=== PATIENT | female | born 1995 | race Two or more races ===

== ENCOUNTER 2019-09-11 09:24 | Emergency (ER) | payer MEDICAID ==
[~2019-09-11] VITALS: Ht 162.6 cm; Wt 65.0 kg
--- NOTE | 2019-09-11 09:54 | NUR ---
US DELAY-LABS/MEDS
--- NOTE | 2019-09-11 09:57 | NUR ---
PT RESTING IN GURNEY, CHANGED INTO GOWN, NAD, ON MONITOR, SKIN COLOR WNL, WARM AND DRY, RESP WNL, AT BEDSIDE. WCTM. WAITING FOR LABS AND U/S.
[2019-09-11] MEDS ORDERED: MORPHINE SULFATE 4 MG/ML, 1ML IVPush PRN (10:00)
[2019-09-11] MEDS ORDERED: ONDANSETRON 2MG/ML, 2ML IVPush ONE (10:00)
[2019-09-11] MEDS ORDERED: KETOROLAC 30 MG/1 ML IVPush ONE (10:00)
[2019-09-11] MEDS ORDERED: ONDANSETRON 2MG/ML, 2ML ONE (10:02)
[2019-09-11] MEDS ORDERED: KETOROLAC 60 MG/2 ML ONE (10:22)
[2019-09-11] MEDS ORDERED: KETOROLAC 30 MG/1 ML ONE (10:22)
[2019-09-11] MEDS ORDERED: MORPHINE SULFATE 4 MG/ML, 1ML ONE (10:38)
--- NOTE | 2019-09-11 10:40 | NUR ---
Preceptor RN: Pt to US at this time
[2019-09-11 10:41] LABS: BASOPHILS # (AUTO) 0.05 x10^3/uL (0-0.1); BASOPHILS % (AUTO) 1 % (0-1); EOSINOPHILS # (AUTO) 0.24 x10^3/uL (0-0.4); EOSINOPHILS % (AUTO) 3 % (1-7); LYMPHOCYTES % (AUTO) 20 % (22-44); MD NO; MEAN CORPUSCULAR HEMOGLOBIN 29.2 pg (27.0-34.8); MEAN CORPUSCULAR HGB CONC 33.7 g/dL (32.4-35.8); MEAN CORPUSCULAR VOLUME 86.8 fL (80-100); MONOCYTES # (AUTO) 0.39 x10^3/uL (0.2-0.8); MONOCYTES % (AUTO) 4 % (2-9); NEUTROPHILS # (AUTO) 6.61 x10^3/uL (1.8-6.8); NEUTROPHILS % (AUTO) 73 % (42-75); PLATELET COUNT 245 x10^3/uL (130-400); RED BLOOD COUNT 4.92 x10^6/uL (3.82-5.3); RED CELL DISTRIBUTION WIDTH 12.8 % (9.6-15.2)
[2019-09-11 10:43] LABS: ALBUMIN 3.6 g/dL (3.4-5.0); ANION GAP 6 mmol/L (5-15); CALCIUM 8.6 mg/dL (8.5-10.1); CHLORIDE 112 mmol/L (98-107)
[2019-09-11 10:49] LABS: ALANINE AMINOTRANSFERASE 17 U/L (12-78); ALKALINE PHOSPHATASE 42 U/L (45-117); BILIRUBIN,TOTAL 0.5 mg/dL (0.2-1.0); CREATININE 0.71 mg/dL (0.55-1.02); TOTAL PROTEIN 7.1 g/dL (6.4-8.2)
--- NOTE | 2019-09-11 11:04 | NUR ---
Pt back from U/S, on monitor, resting in gurney, with warm blankets for comfort, NAD, skin warm and dry, RESP WNL, ABC intact, MAEx4. WCTM. waiting for UA and US read.
--- NOTE | 2019-09-11 11:08 | NUR ---
pt ambulated to and from bathroom with a smooth and steady gait. COOPER. DAMIR sent to lab.
[2019-09-11 11:40] LABS: MICROSCOPIC AUTO
[2019-09-11 11:44] LABS: CULTURE INDICATED? NO
[2019-09-11 12:08] VITALS: BP 95/50
--- NOTE | 2019-09-11 12:09 | NUR ---
Patient given discharge instructions and they have confirmed that they understand the instructions. Patient ambulatory with steady gait. NAD, skin WNL, warm and dry, RESP WNL, denies additional questions at this time.
== END 2019-09-11 12:11 | disposition home or self-care (01) ==
LOC: ED 10:05
DX: R10.31 Right lower quadrant pain (principal); R11.2 Nausea with vomiting, unspecified; R31.9 Hematuria, unspecified
CPT/HCPCS: 36415; 76830; 80053; 81001; 84702; 85025; 96374; 96375; 99284; J1885; J2405